=== PATIENT | female | born 1985 | race Caucasian/White ===

== ENCOUNTER 2017-01-17 04:34 | Inpatient (IN) | payer OTHER ==
[~2017-01-17] VITALS: Ht 160 cm; Wt 101.2 kg
[2017-01-17 04:46] VITALS: BP 148/112
--- NOTE | 2017-01-17 04:55 | NUR ---
AMBULATED TO ER BED 5
--- NOTE | 2017-01-17 05:14 | NUR ---
Patient being evaluated by physician at bedside.
[2017-01-17] MEDS ORDERED: NACL 0.9% 1,000 ML IV ONE (05:15)
[2017-01-17] MEDS ORDERED: MORPHINE SULFATE 4 MG/ML SYR IVP ONE (05:15)
[2017-01-17] MEDS ORDERED: ONDANSETRON 4 MG/2 ML VIAL IVP ONE (05:15)
--- NOTE | 2017-01-17 05:30 | NUR ---
31Y/F PT. PRESENTS TO ED WITH C/O ABDOMINAL PAIN X 1 DAY. AAO X4, AMBULATORY WITH STEDAY GAIT. RESPIRATIONS ROOM AIR, EVEN AND UNLABORED. SKIN WARM AND DRY. ABDOMEN SOFT, NONTENDER. C/O PAIN 02/14, VSS, ER MD MADE AWARE OF PT. STATUS.
[2017-01-17 06:15] LABS: HEMATOCRIT 43.8 % (36-48); HEMOGLOBIN 14.5 g/dL (12.0-16.0); MEAN CORPUSCULAR HEMOGLOBIN 29 pg (27-31); MEAN CORPUSCULAR HGB CONC 33 g/dL (33-37); MEAN CORPUSCULAR VOLUME 88 fL (80-94); PLATELET COUNT (AUTO) 241 K/uL (140-450); RED BLOOD CELL COUNT(AUTO) 4.96 MIL/uL (4.20-5.40); RED CELL DISTRIBUTION WIDTH 12.4 % (11.6-13.7); WHITE BLOOD COUNT (AUTO) 16.3 K/uL (4.8-10.8)
[2017-01-17] MEDS ORDERED: HYDROmorphone 1 MG/ML AMP IVP ONE (06:25)
[2017-01-17 06:29] LABS: LYMPHOCYTES % (MANUAL) 10 % (20-46); MONOCYTES % (MANUAL) 4 % (5-12)
[2017-01-17 06:32] LABS: POTASSIUM 3.7 mmol/L (3.5-5.1)
[2017-01-17 06:33] LABS: ANION GAP 13.7 (8-16); CREATININE 0.9 mg/dL (0.6-1.3)
[2017-01-17 06:35] LABS: ALBUMIN 3.7 g/dL (3.4-5.0); TOTAL BILIRUBIN 0.5 mg/dL (0.0-1.0)
[2017-01-17 06:53] LABS: BILIRUBIN,URINE NEGATIVE (NEGATIVE); BLOOD, URINE TRACE-L (NEGATIVE); COLOR,URINE YELLOW (YELLOW); LEUKOCYTE ESTERASE ,URINE NEGATIVE (NEGATIVE); NITRITE, URINE NEGATIVE (NEGATIVE); PH,URINE 8.5 (5.0-9.0); UGLUCOSE NEGATIVE (NEGATIVE)
[2017-01-17 07:23] LABS: APPEARANCE,URINE SLIGHTLY HAZY (CLEAR)
[2017-01-17 07:24] LABS: RBC,URINE 0-5 (RARE) /HPF (0-5)
--- NOTE | 2017-01-17 07:24 | NUR ---
REPORT GIVEN TO REJI KAMARA. PT. RSTING IN BED, NO S/SX OF DISTRESS AT THIS TIME.
[2017-01-17] MEDS ORDERED: NACL 0.9% 1,000 ML IV SCH (07:26)
--- NOTE | 2017-01-17 07:28 | NUR ---
RECEIVED REPORT FROM PIM RN; PATIENT AMBULATED TO AND FROM BATHROOM WITH STEADY GAIT AND WITHOUT INCIDENT; PT IS AOX4; VSS; NAD; WILL CONTINUE TO MONITOR
[2017-01-17] MEDS ORDERED: LORazepam 2 MG/ML VIAL IVP PRN (07:30)
[2017-01-17] MEDS ORDERED: ONDANSETRON 4 MG/2 ML VIAL IVP PRN (07:30)
[2017-01-17] MEDS ORDERED: ACETAMINOPHEN 325 MG TAB PO PRN (07:30)
[2017-01-17] MEDS ORDERED: MORPHINE SULFATE 2 MG/ML SYR IVP PRN (07:30)
[2017-01-17] MEDS ORDERED: KETOROLAC 30 MG/ML VIAL IVP ONE (07:30)
[2017-01-17] MEDS ORDERED: HYDROcodone/APAP 5/325 MG 1 TAB TAB PO PRN (07:30)
--- NOTE | 2017-01-17 08:13 | NUR ---
Patient will be admitted to care of [facility]. Admited to Med Surg. Will go to room 119A. Belongings list completed. Report to oni.
--- NOTE | 2017-01-17 08:40 | NUR ---
RECEIVED REPORT FROM ER NURSE ANH FOR CONTINUITY OF CARE. PT CAME IN VIA WHEELCHAIR. PT AAO. INITIAL ASSESSMENT DONE. RESP EVEN AND UNLABORED. SKIN IS WARM AND DRY. PT DENIES PAIN OR DISCOMFORT AT THIS TIME. NO S/S OF DISTRESS. IV INTACT, NO REDNESS OR SWELLING NOTED. SAFETY MEASURES IN PLACED. CALL LIGHT WITHIN REACH, SIDE RAILS UP, BED LOCKED ON LOW POSITION. WILL CONTINUE TO MONITOR.
[2017-01-17] MEDS ORDERED: ENOXAPARIN 40 MG/0.4 ML SYR SUBQ SCH (09:00)
--- NOTE | 2017-01-17 10:30 | NUR ---
PT AMBULATED TO THE RESTROOM WITH STEADY GAIT. NO SIGNS OF ACUTE DISTRESS. DENIES PAIN OF DISCOMFORT. NO STONES NOTED IN URINE. SAFETY MEASURES IN PLACED. WILL CONTINUE TO MONITOR.
--- NOTE | 2017-01-17 12:39 | NUR ---
PT SLEEPING, AWAKENS EASILY. RESP EVEN AND UNLABORED. NO SIGNS OF ACUTE DISTRESS. DENIES PAIN OR DISCOMFORT AT THIS TIME. SAFETY MEASURES IN PLACED. WILL CONTINUE TO MONITOR.
--- NOTE | 2017-01-17 13:40 | NUR ---
FOUND PT'S IV DISCONNECTED. PT STATED "I DID NOT KNOW HOW IT HAPPENED". IV CATH INTACT. BLEEDING CONTROLLED. STARTED NEW IV ON RT AC. IV INTACT, NO SWELLING OR REDNESS NOTED. SAFETY MEASURES IN PLACED. WILL CONTINUE TO MONITOR.
[2017-01-17] MEDS ORDERED: ACET-2619 PO (14:59)
[2017-01-17] MEDS ORDERED: CEPH250C16 PO (15:00)
[2017-01-17] MEDS ORDERED: ONDA4ODT1 SL (15:01)
[2017-01-17 16:00] VITALS: BP 135/72
--- NOTE | 2017-01-17 17:00 | NUR ---
DISCHARGED REPORT, TEACHING, INSTRUCTION GIVEN AND EXPLAINED TO PT. PT VERBALIZED UNDERSTANDING. ARMBAND REMOVED. IV DC'ED, CATH TIP INTACT. NO BLEEDING NOTED. VSS. DENIES PAIN OR DISCOMFORT. NO SIGNS OF ACUTE DISTRESS. PT AMBULATED OUT OF BED WITH STEADY GAIT. WHEELED PT TO THE LOBBY.
== END 2017-01-17 17:00 | disposition home or self-care (01) | DRG 465 ==
LOC: EEVIPCON 04:34 → MED 04:34 → MTU 07:26
PROVIDERS: ADMIT Hospitalist; ATTEND Hospitalist
DX: N13.2 Hydronephrosis with renal and ureteral calculous obstruction (principal); N39.0 Urinary tract infection, site not specified; F17.210 Nicotine dependence, cigarettes, uncomplicated; Z88.0 Allergy status to penicillin; Z79.899 Other long term (current) drug therapy
CPT/HCPCS: 36415; 80053; 81001; 81025; 83690; 85025; 87081; 87086; 96361; 96374; 96375; 99285; J0696; J1170; J1650; J1885; J2270; J2405; J7030; J7060

== ENCOUNTER 2017-09-06 00:35 | Emergency (ER) | payer OTHER ==
[~2017-09-06] VITALS: Ht 160 cm; Wt 99.8 kg
[~2017-09-06 00:35] MED LIST: ACET-2619 PO; CEPH250C16 PO; ONDA4ODT1 SL
[2017-09-06 00:44] VITALS: BP 153/89
[2017-09-06] MEDS: CEPHALEXIN 500 MG CAP PO ONE (01:44)
[2017-09-06] MEDS: PHENAZOPYRIDINE 100 MG TAB PO ONE (01:44)
[2017-09-06 01:59] VITALS: BP 150/97
== END 2017-09-06 01:59 | disposition home or self-care (01) ==
LOC: MED 00:35
DX: N39.0 Urinary tract infection, site not specified (principal); R11.0 Nausea; Z88.0 Allergy status to penicillin; Z79.899 Other long term (current) drug therapy; Z87.442 Personal history of urinary calculi
CPT/HCPCS: 81002; 81025; 99283

== ENCOUNTER 2018-09-02 15:42 | Emergency (ER) | payer OTHER ==
[~2018-09-02] VITALS: Ht 157.5 cm; Wt 105.2 kg
[~2018-09-02 15:42] MED LIST changes: +ONDA-24 SL; -ONDA4ODT1 SL
[2018-09-02 15:53] VITALS: BP 138/70
--- NOTE | 2018-09-02 16:03 | NUR ---
Patient ambulated to bed 12. RN evaluating patient at bedside.
[2018-09-02] MEDS ORDERED: KETOROLAC 60 MG/2 ML VIAL IM ONE (16:25)
[2018-09-02] MEDS ORDERED: CEPHALEXIN 500 MG CAP PO ONE (16:25)
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
--- NOTE | 2018-09-02 16:45 | NUR ---
MEDICATED WRITTEN--CONTINUES TO WAIT FOR CT
--- NOTE | 2018-09-02 16:57 | NUR ---
Patient taken to CT scan via wheelchair by tech.
--- NOTE | 2018-09-02 17:03 | NUR ---
Patient returned from CT scan. RN re-evaluating patient at bedside.
[2018-09-02 18:39] VITALS: BP 138/87
== END 2018-09-02 18:38 | disposition home or self-care (01) ==
LOC: MED 15:42
DX: S02.2XXA Fracture of nasal bones, initial encounter for closed fracture (principal); Z88.0 Allergy status to penicillin; Z79.899 Other long term (current) drug therapy; V89.2XXA Person injured in unspecified motor-vehicle accident, traffic, initial encounter; Y93.89 Activity, other specified; Y92.89 Other specified places as the place of occurrence of the external cause; Y99.8 Other external cause status
CPT/HCPCS: 70486; 81002; 81025; 90471; 90715; 96372; 99284; J1885

== ENCOUNTER 2019-06-29 11:41 | Emergency (ER) | payer OTHER ==
[~2019-06-29] VITALS: Ht 161.3 cm; Wt 112.0 kg
[2019-06-29 11:57] VITALS: BP 113/65
--- NOTE | 2019-06-29 12:05 | NUR ---
AMB TO BED 04
--- NOTE | 2019-06-29 12:07 | NUR ---
33 Y/O F C/C FEVER X 2 DAYS. PT TAKEN TYLENOL/NIQUIL AT HOME. LAST DOSE TYLENOL 1000 HOURS. PT ALLERGY PNC. HX DEPRESSION. RX AMBILIFY. PER PT N/D X1 DAY. NO VOMITING. TAKEN FLU SHOT/NO ONE SICK AT HOME. SIDE RAIL X1.
[2019-06-29] MEDS ORDERED: ALBUTEROL 0.083% 2.5 MG/3 ML NEBU INH ONE (12:30)
--- NOTE | 2019-06-29 12:34 | NUR ---
US AT BEDSIDE
[2019-06-29] MEDS ORDERED: ACETAMINOPHEN 325 MG TAB PO ONE (12:35)
[2019-06-29 13:17] LABS: APPEARANCE,URINE CLEAR (CLEAR); BILIRUBIN,URINE NEGATIVE (NEGATIVE); BLOOD, URINE 2+ (NEGATIVE); COLOR,URINE YELLOW (YELLOW); LEUKOCYTE ESTERASE ,URINE 1+ (NEGATIVE); NITRITE, URINE NEGATIVE (NEGATIVE); UGLUCOSE NEGATIVE (NEGATIVE)
--- NOTE | 2019-06-29 13:58 | NUR ---
PT RESTING IN BED, SIDE RAIL X1
[2019-06-29] MEDS ORDERED: KETOROLAC 30 MG/ML VIAL IM ONE (14:10)
[2019-06-29 14:21] VITALS: BP 118/62
== END 2019-06-29 14:22 | disposition home or self-care (01) ==
LOC: MED 11:41
DX: N39.0 Urinary tract infection, site not specified (principal); M25.552 Pain in left hip; F32.9 Major depressive disorder, single episode, unspecified; Z88.0 Allergy status to penicillin; Z79.899 Other long term (current) drug therapy
CPT/HCPCS: 71045; 81001; 87086; 87186; 93971; 94640; 96372; 99285; J1885; J7613; Q0092

== ENCOUNTER 2019-08-28 13:12 | Emergency (ER) | payer OTHER ==
[~2019-08-28] VITALS: Ht 160 cm; Wt 108.9 kg
[2019-08-28 13:18] VITALS: BP 130/91
--- NOTE | 2019-08-28 13:22 | NUR ---
pt ambulated to bed 4, steady gait.
--- NOTE | 2019-08-28 13:24 | NUR ---
urine cup at bedside, pt unable to void at this time.
--- NOTE | 2019-08-28 13:31 | NUR ---
Fall yesterday while walking, pt fell on r knee. while patinet was finishing walk patient heard a pop in the left hip. 11/14 pain . Pt awake , alert, afibrile , ambulatory with steady gait .able to move left leg . pmhx depression
--- NOTE | 2019-08-28 13:35 | NUR ---
dr lainez at bedside evaluating pt.
--- NOTE | 2019-08-28 13:53 | NUR ---
pt went to xray via wheelchair ,pt awake , alert, stable v/s.
--- NOTE | 2019-08-28 14:01 | NUR ---
pt back from ay via wheelchair.
[2019-08-28 14:50] VITALS: BP 130/91
--- NOTE | 2019-08-28 14:50 | NUR ---
Patient discharged with v/s stable. Written and verbal after care instructions given and explained. Patient verbalized understanding. Ambulatory with steady gait. All questions addressed prior to discharge. Advised to follow up with PMD.Excuse from work given.
== END 2019-08-28 14:50 | disposition home or self-care (01) ==
LOC: MED 13:12
DX: S76.012A Strain of muscle, fascia and tendon of left hip, initial encounter (principal); F17.200 Nicotine dependence, unspecified, uncomplicated; Z88.0 Allergy status to penicillin; Z79.899 Other long term (current) drug therapy; W19.XXXA Unspecified fall, initial encounter; Y93.01 Activity, walking, marching and hiking; Y92.89 Other specified places as the place of occurrence of the external cause; Y99.8 Other external cause status
CPT/HCPCS: 73502; 81002; 81025; 99283

== ENCOUNTER 2021-08-03 18:32 | Emergency (ER) | payer OTHER ==
[~2021-08-03] VITALS: Ht 160 cm; Wt 107.0 kg
[~2021-08-03 18:32] MED LIST changes: +ONDA-188 SL; -ONDA-24 SL
[2021-08-03 18:43] VITALS: BP 156/120
--- NOTE | 2021-08-03 19:04 | NUR ---
PT AMBULATED TO BED 03.
--- NOTE | 2021-08-03 19:27 | NUR ---
Dr. Valadez examining patient.
[2021-08-03 19:49] LABS: APPEARANCE,URINE CLEAR (CLEAR); BILIRUBIN,URINE NEGATIVE (NEGATIVE); BLOOD, URINE TRACE-I (NEGATIVE); COLOR,URINE YELLOW (YELLOW); LEUKOCYTE ESTERASE ,URINE NEGATIVE (NEGATIVE); NITRITE, URINE NEGATIVE (NEGATIVE); UGLUCOSE NEGATIVE (NEGATIVE)
--- NOTE | 2021-08-03 19:59 | NUR ---
Ultrasound at bedside.
--- NOTE | 2021-08-03 20:01 | NUR ---
US tech in room.
--- NOTE | 2021-08-03 20:10 | NUR ---
In room w/ MD to assist for pelvic exam. Pt tolerated well without event.
[2021-08-03 20:42] VITALS: BP 132/92
[2021-08-03] MEDS ORDERED: ACETAMINOPHEN EXTRA STRENGTH 500 MG TAB PO ONE (20:55)
--- NOTE | 2021-08-03 20:58 | NUR ---
Pt sitting on side of bed, states she ordered food from [employer] and expecting food shortly. Pt requesting tylenol for headache. Received verbal order from MD Venancio for 1g tylenol. Back in room w/ med. Administered 1g tylenol PO without event. Rei tray set up.
[2021-08-03 21:02] LABS: RBC,URINE 0-5 /HPF (0-5); WBC,URINE 0-5 /HPF (0-5)
[2021-08-03 21:03] LABS: CALCIUM OXALATE CRYSTALS,UR None Seen /HPF (None Seen); COARSE GRANULAR CASTS,URINE None Seen /LPF (None Seen); FINE GRANULAR CASTS,URINE None Seen /LPF (None Seen); HYALINE CASTS, URINE None Seen /LPF (None Seen); OTHER CASTS, URINE None Seen /LPF (None Seen); OTHER CRYSTALS,URINE None Seen /HPF (None Seen); RED BLOOD CELL CASTS,URINE None Seen /LPF (None Seen); TRICHOMONAS,URINE None Seen /HPF (None Seen); TRIPLE PHOSPHATE CRYSTAL,UR None Seen /HPF (None Seen); URIC ACID CRYSTALS,URINE None Seen /HPF (None Seen); URINE AMORPHOUS URATE None Seen /HPF (None Seen); WAXY CASTS,URINE None Seen /LPF (None Seen); YEAST,URINE None Seen /HPF (None Seen)
[2021-08-03] MEDS ORDERED: LIDO120C3 TP (21:32)
--- NOTE | 2021-08-03 21:56 | NUR ---
Patient discharged with v/s stable. Written and verbal after care instructions given and explained. Patient alert, oriented and verbalized understanding of instructions. Ambulatory with steady gait. All questions addressed prior to discharge. ID band removed. Patient advised to follow up with PMD. Rx of DOLORACIN-I given. Patient educated on indication of medication including possible reaction and side effects. Opportunity to ask questions provided and answered.
== END 2021-08-03 21:56 | disposition home or self-care (01) ==
LOC: MED 18:32
DX: T83.39XA Other mechanical complication of intrauterine contraceptive device, initial encounter (principal); N83.202 Unspecified ovarian cyst, left side; Z79.899 Other long term (current) drug therapy; Z79.2 Long term (current) use of antibiotics; Z88.0 Allergy status to penicillin
CPT/HCPCS: 76856; 81001; 81025; 99284; Q0092